=== PATIENT | female | born 1970 | race American Indian/Alaskan Native ===

== ENCOUNTER 2017-01-21 06:46 | Inpatient (IN) | payer OTHER ==
[2017-01-08 10:43] VITALS: BMI 47.9
[~2017-01-21 06:46] MED LIST: Lactated Ringer's 1,000 ML IV ONE
[2017-01-21] MEDS ORDERED: Lactated Ringer's 1,000 ML IV ONE ×3 (07:25→09:20)
[2017-01-21] MEDS ORDERED: Bupivacaine HCl 0.25% PF (10 ml) Inj ONE ×2 (07:33→07:34)
[2017-01-21] MEDS ORDERED: ceFAZolin IV 1 gm in Dextrose 1 GM/50 ML BAG IVPB ONE (07:33)
[2017-01-21] MEDS ORDERED: ceFAZolin IV 2 gm in Dextrose 1 GM/50 ML BAG IVPB ONE (07:34)
[2017-01-21] MEDS ORDERED: Propofol 10 mg/ml Inj (20 ML) ONE ×2 (07:53→09:01)
[2017-01-21] MEDS ORDERED: Midazolam 2 MG/2 ML VIAL ONE (07:55)
[2017-01-21] MEDS ORDERED: Neostigmine Methylsulfate 3mg/3ml Syringe IV ONE (08:48)
[2017-01-21] MEDS ORDERED: Succinylcholine Chloride 20 mg/ml Syr (5 ml) IV ONE (08:48)
[2017-01-21] MEDS ORDERED: HYDROmorphone 0.5 mg/0.5 ml ISec IVP PRN ×3 (09:37→12:00)
--- NOTE | 2017-01-21 09:37 | PCM.SURG1 ---
Surgeon's Initial Post Op Note - Surgeon's Notes Surgeon: Yordy Editor Sound: Richa Type of Anesthesia: General Endo Pre-Operative Diagnosis: Morbid Obesity Operative Findings: No hiatal hernia, negative leak test Post-Operative Diagnosis: Morbid Obesity Operation Performed: Laparoscopic sleeve gastrectomy, upper endoscopy, TAP block Specimen/Specimens Removed: Portion of stomach Estimated Blood Loss: EBL {In ML}: 10 Drains Used: No Drains Date of Surgery/Procedure: 01/21/17 Time of Surgery/Procedure: 08:00
[2017-01-21] MEDS ORDERED: Acetaminophen IV 1,000 MG in Premixed IV 1 EA IV STA (09:38)
[2017-01-21] MEDS ORDERED: Albuterol 0.083% Inhal Sol (2.5 mg/3 mL) UD INH ONE (09:59)
[2017-01-21] MEDS: (Novolin R) Insulin Human Regular 100 units/ml vial SC SCH ×3 (13:03→21:41)
[2017-01-21] MEDS: Lactated Ringer's 1,000 ML IV SCH ×2 (13:50→16:25)
--- NOTE | 2017-01-21 15:01 | OP ---
PROCEDURE DATE: 01/21/2017 PREOPERATIVE DIAGNOSIS: Morbid obesity. POSTOPERATIVE DIAGNOSIS: Morbid obesity. PROCEDURES: Laparoscopic sleeve gastrectomy, upper endoscopy TAP block. SURGEON: Rina Scales MD WINTER INTERN: Ketan Chaudhry DO TYPE OF ANESTHESIA: General. ANESTHESIA ADMINISTERED BY: Dr. James Danielson. ESTIMATED BLOOD LOSS: Minimal. COMPLICATIONS: None. SPECIMEN: Portion of stomach. INDICATIONS: This is a 46-year-old female with morbid obesity, who meets the NIH criteria for bariatric surgery. DESCRIPTION OF PROCEDURE: The patient was brought to the operating room and placed in supine position on the operating room table. General endotracheal anesthesia was induced by the anesthesia team. Precautions were taken to pad the patient well using gel padding in the back, feet, and arms to prevent postoperative pain. The patient was prepped and draped in the usual sterile fashion. The assistant associate professor placed a Veress needle in the left upper quadrant below the costal margin to establish pneumoperitoneum to 15 mmHg. A 12-mm Optiview port along with 0-degree laparoscope was inserted in the midline, superior to the umbilicus with no evidence of injury upon entering. Next, the scope was changed to 45 degree and the Veress needle was removed under vision. Under laparoscopic guidance, a transversus abdominis plane block was performed by injecting 30 cc of 0.25% Marcaine into multiple sites along the left flank. The solution was injected into the plane between the internal oblique and the transversus abdominis muscles to aid in postoperative analgesia. This procedure was repeated on the right flank for maximum efficacy. A 15-mm trocar was placed in the right midclavicular line above the umbilicus. Additionally, two 5-mm trocars were placed in the right and left flank below the costal margin. All trocars were placed under direct vision. A liver retractor ([place]) was inserted through a separate stab incision 1 cm below the xiphoid process and was attached to a retracting device secured to the left side of the table. The entire procedure was performed laparoscopically. The primary surgeon operated from the right side of the patient and the assistant associate professor operated from the left side of the patient. The lesser sac was entered by first dividing the gastrocolic ligament along the midpoint of the greater curvature of the stomach with a harmonic scalpel. The dissection was performed close to the stomach to avoid the gastroepiploic artery. Dissection proceeded proximally toward the angle of His. The assistant associate professor dissected out and ligated the short gastric arteries with the harmonic scalpel. Care was taken to avoid injury to the spleen. We then returned to the point, where the dissection began more distally on the greater curvature. The assistant associate professor used the Harmonic scalpel and continued distally along the greater curvature to approximately 4 to 6 cm from the pylorus. At this point, a 40-Czech bougie was inserted by the anesthesia team and was aligned medially and passed under vision to the region of the pylorus. The assistant associate professor grasped the greater curvature of the stomach with a loop grasper and retracted laterally. The sleeve gastrectomy was performed using sequential firings of a 60-mm Endo KATE stapler ([employer]). For the initial two firings, a green load was used where the stomach tissue was thicker. The remaining firings were done using gold and blue loads. Care was taken to avoid narrowing the distal aspect of the sleeve. The anterior and posterior vagus nerves were identified and preserved throughout their course. Sequential firings of the stapler continued up to the angle of His. Care was taken to ensure equal tension along the entire staple line to prevent kinking of the sleeve. The entire staple line was reinforced with SeamGuard buttressing material to help reduce the chance of bleeding or a leak. An upper endoscopy was performed (to be dictated separately) in order to evaluate the gastric mucosa as well as perform a leak test. The distal stomach was occluded and the upper abdomen was filled with saline solution in order to submerge the entire staple line. Air was insufflated and no bubbles were visualized. The saline was suctioned off and the scope removed. The resected stomach was placed in a large EndoCatch bag for later removal. The area was carefully inspected and hemostasis ensured. The fascia of the 15-mm port site was closed using 0 Vicryl interrupted suture on the Endoclose device. The liver retractor and all ports were removed under vision and pneumoperitoneum evacuated. The specimen was removed through the 15-mm port site and was sent off the field. The skin on all port sites was closed with 4-0 Monocryl subcuticular sutures followed by Dermabond for dressing. All sponge and instruments counts were correct at the end of the procedure. The patient tolerated the procedure well, was extubated in the operating room and was transferred to the recovery room in stable condition. Rina Scales MD BRINDA
[2017-01-22] MEDS: Lactated Ringer's 1,000 ML IV SCH ×2 (06:20→12:45)
[2017-01-22 06:40] LABS: BASO % 0.4 % (0.0-2.0); EOS # 0.1 K/uL (0.0-0.7); EOS % 0.9 % (0.0-4.0); HEMOGLOBIN 12.2 g/dL (11.0-16.0); LYMPH # 1.7 K/uL (1.0-4.3); LYMPH % 17.4 % (20.0-40.0); MEAN CELL VOLUME 85.8 fL (81.0-99.0); MEAN CORPUSCULAR HEMOGLOBIN 28.3 pg (27.0-31.0); MEAN PLATELET VOLUME 8.5 fL (7.2-11.7); MONO # 0.8 K/uL (0.0-0.8); MONO % 8.7 % (0.0-10.0); NEUT % 72.6 % (50.0-75.0); RBC 4.32 Mil/uL (3.80-5.20); RED CELL DISTRIBUTION WIDTH 13.7 % (11.5-14.5); WHITE BLOOD COUNT 9.7 K/uL (4.8-10.8)
[2017-01-22 07:24] LABS: GFR AFRICAN-AMERICAN > 60; GFR NON-AFRICAN AMERICAN > 60
[2017-01-22 07:25] LABS: BLOOD UREA NITROGEN 7 mg/dL (7-17); CALCIUM 8.7 mg/dl (8.6-10.4)
[2017-01-22] MEDS ORDERED: Barium Sulfate for Susp 96% w/w 176g Bottle PR ONE (07:28)
[2017-01-22] MEDS ORDERED: Iohexol 240 200 ML IJ ONE (07:28)
[2017-01-22] MEDS: (Novolin R) Insulin Human Regular 100 units/ml vial SC SCH ×2 (07:30→11:30)
[2017-01-22 07:57] VITALS: O2SAT 97
--- NOTE | 2017-01-22 08:09 | CP.PCM.PN ---
Subjective - Date & Time of Evaluation Date of Evaluation: 01/22/17 Time of Evaluation: 08:06 - Subjective Subjective: No acute events overnight. Pt denies pain or SOB. Tolerated sips of water last night, voiding freely, ambulating in her room. Does not report nausea.Awaiting UGI. Objective - Vital Signs/Intake and Output Vital Signs (last 24 hours): Temp Pulse Resp BP Pulse Ox 98.0 F 83 18 114/69 97 01/22/17 07:56 01/22/17 07:56 01/22/17 07:56 01/22/17 07:56 01/22/17 07:56 - Medications Medications: Current Medications Enoxaparin Sodium (Lovenox) 40 mg SC DAILY ALISON Famotidine (Pepcid) 20 mg IVP Q12 [facility] Last Admin: 01/21/17 21:53 Dose: 20 mg Hydralazine HCl (Apresoline) 10 mg IVP Q6H PRN PRN Reason: Systolic Blood Pressure Hydromorphone HCl (Dilaudid) 1 mg IVP Q2H PRN PRN Reason: Pain, moderate (4-7) Last Admin: 01/21/17 12:56 Dose: 1 mg Lactated Ringer's (Lactated Ringer's) 1,000 mls @ 150 mls/hr IV .Q6H40M [facility] Last Admin: 01/22/17 06:20 Dose: 150 mls/hr Lactated Ringer's (Lactated Ringer's) 1,000 mls @ 150 mls/hr IV .Q6H40M [facility] Last Admin: 01/21/17 16:25 Dose: Not Given Insulin Human Regular (Novolin R) 0 unit SC ACHS ALISON PRN Reason: Protocol Last Admin: 01/21/17 21:41 Dose: Not Given Ketorolac Tromethamine (Toradol) 30 mg IVP Q6 [facility] Stop: 01/23/17 06:01 Last Admin: 01/22/17 06:21 Dose: 30 mg Metoclopramide HCl (Reglan) 10 mg IVP ONCE [facility] Last Admin: 01/21/17 07:28 Dose: 10 mg Metoclopramide HCl (Reglan) 10 mg IVP Q6H [facility] Last Admin: 01/22/17 06:23 Dose: 10 mg Ondansetron HCl (Zofran Inj) 4 mg IVP Q6H PRN PRN Reason: Nausea/Vomiting - Labs Labs: 01/22/17 06:29 01/22/17 06:29 - Constitutional Appears: Well - Respiratory Exam Respiratory Exam: Clear to Ausculation Bilateral - GI/Abdominal Exam GI & Abdominal Exam: Normal Bowel Sounds Additional comments: Incisions C/D/I - Extremities Exam Extremities Exam: Normal Inspection Additional comments: No calf tenderness Assessment and Plan - Assessment and Plan (Free Text) Assessment: s/p laparoscopic sleeve gastrectomy Plan: Pt to have UGI this am. Then to start bariatric clear liquid diet and D/C tele once UGI reported as no leak. Labs reviewed. Lovenox 40mg subcutaneous X 1. Once pt tolerates 24 oz of liquids, she can be discharged home. She has a follow up appointment to see me in 1 week.
--- NOTE | 2017-01-22 09:29 | OP ---
PROCEDURE DATE: 01/21/2017 Name: Meli Strange MR#: [id number] : 1970 Sex: Female INTRAOPERATIVE UPPER ENDOSCOPY DATE OF OPERATION: 01/21/2017 SURGEON: Ketan Chaudhry DO PREOPERATIVE DIAGNOSIS: Morbid obesity. POSTOPERATIVE DIAGNOSIS: Morbid obesity. PROCEDURE: Intraoperative esophagogastroduodenoscopy. INDICATIONS: This is a morbidly-obese patient who is undergoing bariatric surgery in which upper endoscopy is being performed to evaluate the gastric mucosa. TYPE OF ANESTHESIA: General. FINDINGS: Negative intraoperative assessment with obesity. COMPLICATIONS: None. DISPOSITION: ICU PACU. PROCEDURE: An Olympus upper endoscope was inserted into the oropharynx and passed bluntly through the hypopharynx into the proximal esophagus. Insufflation was begun and the scope was passed under direct vision through the proximal, mid, and distal esophagus with care taken to look at a full 360 degrees of exposed mucosa. Beginning at the fundus, the gastric sleeve staple line was carefully examined and found to have no evidence of hemorrhage or intraluminal clot. All excess insufflated air was aspirated and the scope was withdrawn. The patient remained intubated in the operating room for completion of the operative procedure. Ketan Chaudhry DO
[2017-01-22] MEDS ORDERED: Enoxaparin 40 mg Syringe SC SCH (10:00)
--- NOTE | 2017-01-22 11:16 | RAD ---
PROCEDURE: Upper GI series dated 01/22/2017 HISTORY: Bariatric surgery COMPARISON: No prior study available for comparison TECHNIQUE: Limited upper GI series performed initially utilizing water-soluble contrast material followed by FEC opaque contrast material FINDINGS: Current study reveals postsurgical changes involving greater curvature consistent with a gastric sleeve procedure. No evidence of contrast extravasation/leak demonstrated during this procedure. Contrast flowed into the proximal small bowel without significant delay. IMPRESSION: Postsurgical changes of gastric sleeve procedure as above. No evidence of contrast extravasation/ leak seen. Note that these findings were discussed with Dr. Gomez at approximately 11:10 a.m. with written down and read back verification.
[2017-01-22 15:19] VITALS: BP 152/88; PULSE 68; RESP 20; TEMP 98.1
== END 2017-01-22 17:22 | disposition home or self-care (01) | DRG 621 ==
LOC: C.9S 06:46 → C.6T 11:51
PROVIDERS: ADMIT Surgery; ATTEND Surgery
PROC: 0DB64Z3 Excision of Stomach, Percutaneous Endoscopic Approach, Vertical (ICD-10-PCS; principal; 2017-01-21 07:45)
PROC: 0DJ08ZZ Inspection of Upper Intestinal Tract, Via Natural or Artificial Opening Endoscopic (ICD-10-PCS; 2017-01-21 07:45)
DX: E66.01 Morbid (severe) obesity due to excess calories (principal)